=== PATIENT | female | born 1985 | race Caucasian/White ===

== ENCOUNTER 2018-06-07 19:25 | Emergency (ER) | payer OTHER, SELFPAY ==
[~2018-06-07] VITALS: Ht 165.1 cm; Wt 81.8 kg
--- NOTE | 2018-06-07 21:41 | REPVR ---
EXAM: CT Head Without Contrast EXAM DATE/TIME: 06/07/2018 9:07 PM CLINICAL HISTORY: 33 years old, female; Injury or trauma; Fall; Initial encounter; Blunt trauma (contusions or hematomas); Consciousness not specified; Additional info: Tr TECHNIQUE: Axial computed tomography images of the head/brain without contrast. All CT scans at this facility use at least one of these dose optimization techniques: automated exposure control; mA and/or kV adjustment per patient size (includes targeted exams where dose is matched to clinical indication); or iterative reconstruction. COMPARISON: No relevant prior studies available. FINDINGS: Brain: There is no evidence of intracranial bleed. Ventricles: Normal appearing ventricles. The ambriz-white differentiation appears preserved. Bones/joints: There is no evidence of fracture. Sinuses: Clear paranasal sinuses. Mastoid air cells: Clear mastoid air cells. Soft tissues: Unremarkable. IMPRESSION: No evidence of intracranial bleed. No evidence of fracture. Electronically signed by: Tyler Peters On 06/07/2018 21:40:49 PM
--- NOTE | 2018-06-07 21:48 | REPVR ---
EXAM: CT Cervical Spine Without Contrast EXAM DATE/TIME: 06/07/2018 9:07 PM CLINICAL HISTORY: 33 years old, female; Injury or trauma; Fall; Initial encounter; Blunt trauma; Additional info: Tr TECHNIQUE: Axial computed tomography images of the cervical spine without intravenous contrast. All CT scans at this facility use at least one of these dose optimization techniques: automated exposure control; mA and/or kV adjustment per patient size (includes targeted exams where dose is matched to clinical indication); or iterative reconstruction. Coronal and sagittal reformatted images were created and reviewed. COMPARISON: No relevant prior studies available. FINDINGS: Vertebrae: The cervical vertebra appear in alignment. There is no evidence of fracture. The dens appears intact and the lateral masses of C1 appears symmetric. Discs/Spinal canal/Neural foramina: No spinal stenosis. No neural foraminal narrowing. Soft tissues: There is no evidence of soft tissue swelling. Lymph nodes: There are small lymph nodes right and left side of the neck. Lungs: Clear apical portions of the lungs. IMPRESSION: 1. No evidence of fracture. 2. The cervical vertebra are in alignment. Electronically signed by: Tyler Peters On 06/07/2018 21:48:18 PM
[2018-06-07 22:50] VITALS: BP 120/74
--- NOTE | 2018-06-08 08:19 | REP ---
Clinical: Trauma. Technique: AP, angled, and lateral views of the sacrum and coccyx. Findings: Three total views demonstrate normal bilateral sacroiliac joints. Lateral view suggests acute angulation at the sacrococcygeal junction which may reflect mild injury. Overlying soft tissue swelling cannot be excluded. No discrete fracture identified. Impression: Possible subluxation at the sacrococcygeal joint Electronically Signed by Richard Morrow MD 06/08/2018 08:11 A
--- NOTE | 2018-06-09 06:39 | ED PDOC ---
Post-Departure Follow-Up certified letter sent to pt re formal read of sacrum xray. see read. refer pt to ortho and call and fax report there Kavya Ordaz MD Jun 09, 2018 06:39
== END 2018-06-07 22:55 | disposition home or self-care (01) ==
LOC: M ED 19:25
DX: T14.8XXA Other injury of unspecified body region, initial encounter (principal); R93.7 Abnormal findings on diagnostic imaging of other parts of musculoskeletal system; W00.0XXA Fall on same level due to ice and snow, initial encounter; Y92.410 Unspecified street and highway as the place of occurrence of the external cause; Z88.8 Allergy status to other drugs, medicaments and biological substances